=== PATIENT | female | born 1995 | race Hispanic/Latino ===

== ENCOUNTER 2020-05-04 00:17 | Emergency (ER) | payer MEDICAID ==
[2020-05-04 00:54] LABS: BASOPHILS % (AUTO) 0.3 % (0.0-5.0); EOSINOPHILS % (AUTO) 2.5 % (0.0-8.0); HEMATOCRIT 31.7 % (36-48); LYMPHOCYTES % (AUTO) 25.8 % (21.0-51.0); MEAN CORPUSCULAR HEMOGLOBIN 28.5 pg (27.0-33.0); MEAN CORPUSCULAR HGB CONC 33.1 g/dL (32.0-36.0); MEAN CORPUSCULAR VOLUME 85.9 fL (79-99); MONOCYTES % (AUTO) 3.2 % (3.0-13.0); PLATELET COUNT (AUTO) 264 K/uL (130-400); RED BLOOD CELL COUNT(AUTO) 3.69 MIL/uL (4.00-5.50); RED CELL DISTRIBUTION WIDTH 15.4 % (11.0-15.5); WHITE BLOOD COUNT (AUTO) 9.3 K/uL (4.8-10.8)
[2020-05-04 01:01] LABS: APPEARANCE,URINE Clear (CLEAR); BILIRUBIN,URINE Negative (NEGATIVE); COLOR,URINE Dark Yellow (YELLOW); GLUCOSE, URINE (UA) Negative (NEGATIVE); KETONES,URINE Trace mg/dL (NEGATIVE); LEUKOCYTE ESTERASE ,URINE Moderate (NEGATIVE); NITRATE,URINE Negative (NEGATIVE); OCCULT BLOOD,URINE Negative (NEGATIVE); PH,URINE 5.5 (5.0-8.0); PROTEIN,URINE Negative (NEGATIVE)
[2020-05-04 01:03] LABS: POTASSIUM 3.3 mmol/L (3.5-5.1)
[2020-05-04 01:04] LABS: HCG,QUAL RESULT POSITIVE (NEGATIVE)
[2020-05-04 01:08] LABS: ALBUMIN 3.9 g/dL (3.5-5.0); TOTAL PROTEIN, SERUM 8.2 g/dL (6.0-8.3)
[2020-05-04 01:11] LABS: BACTERIA,URINE Few /HPF (None Seen); RBC,URINE 0-1 /HPF (0-1); SQUAMOUS EPITHELIAL CELL,UR Moderate /HPF (0-2)
[2020-05-04] MEDS ORDERED: AMOXICILLIN 500 MG CAPSULE PO ONE (01:35)
== END 2020-05-04 03:31 | disposition home or self-care (01) ==
LOC: EDH 00:17
DX: O23.11 Infections of bladder in pregnancy, first trimester (principal); O20.0 Threatened abortion; Z3A.12 12 weeks gestation of pregnancy
CPT/HCPCS: 36415; 76817; 80053; 81001; 81025; 84702; 85025; 87088

== ENCOUNTER → 2021-10-23 | Emergency (ER) | payer MEDICAID ==
[~2021-10-23] VITALS: Ht 157.5 cm; Wt 80.7 kg
[2021-10-23 16:22] VITALS: BP 117/74
== END ==
LOC: EDH 16:21
DX: R50.9 Fever, unspecified (principal); Z53.21 Procedure and treatment not carried out due to patient leaving prior to being seen by health care provider
CPT/HCPCS: 87635; 87804 ×2; C9803

== ENCOUNTER 2023-05-01 15:47 | Emergency (ER) | payer MEDICAID ==
[~2023-05-01] VITALS: Ht 157.5 cm; Wt 88.5 kg
[2023-05-01] MEDS ORDERED: KETOROLAC 30MG VIAL (30MG/ML) IM SCH (17:30)
[2023-05-01 18:12] VITALS: BP 134/80
[2023-05-01] MEDS ORDERED: IBUP-2070 PO (19:00)
== END 2023-05-01 20:33 | disposition home or self-care (01) ==
LOC: EDH 15:47
DX: R07.0 Pain in throat (principal); T74.21XA Adult sexual abuse, confirmed, initial encounter
CPT/HCPCS: 99285; 70490; 96372; J1885

== ENCOUNTER 2024-04-06 18:48 | Emergency (ER) | payer MEDICAID ==
[~2024-04-06] VITALS: Ht 157.5 cm; Wt 86.2 kg
[~2024-04-06 18:48] MED LIST: FERR324T4 PO; IBUP-2070 PO
[2024-04-06 19:34] LABS: APPEARANCE,URINE CLEAR (CLEAR); BILIRUBIN,URINE NEGATIVE (NEGATIVE); COLOR,URINE YELLOW (YELLOW); GLUCOSE, URINE (UA) NEGATIVE (NEGATIVE); KETONES,URINE NEGATIVE (NEGATIVE); LEUKOCYTE ESTERASE ,URINE NEGATIVE Leu/uL (NEGATIVE); NITRATE,URINE NEGATIVE (NEGATIVE); OCCULT BLOOD,URINE NEGATIVE (NEGATIVE); PH,URINE 5.5 (5.0-8.0); PROTEIN,URINE NEGATIVE (NEGATIVE); UROBILINOGEN,URINE 3 mg/dL (0.2-1.0)
[2024-04-06 19:35] LABS: ADD UA MICROSCOPIC YES; BASOPHILS # (AUTO) 0.02 K/uL (0.00-0.20); BASOPHILS % (AUTO) 0.2 % (0.0-5.0); EOSINOPHILS # (AUTO) 0.06 K/uL (0.00-0.70); EOSINOPHILS % (AUTO) 0.7 % (0.0-8.0); HEMATOCRIT 29.8 % (36-48); IMMATURE GRANULOCYTE ABSOLUTE 0.04 K/uL (0-1); LYMPHOCYTES % (AUTO) 22.9 % (21.0-51.0); MEAN CORPUSCULAR HGB CONC 33.2 g/dL (32.0-36.0); MEAN CORPUSCULAR VOLUME 84.2 fL (79-99); MONOCYTES # (AUTO) 0.3 K/uL (0.1-1.0); MONOCYTES % (AUTO) 3.3 % (3.0-13.0); NEUTROPHILS # (AUTO) 6.2 K/uL (1.8-7.7); NEUTROPHILS % (AUTO) 72.4 % (40.0-77.0); PLATELET COUNT (AUTO) 255 K/uL (130-400); RED BLOOD CELL COUNT(AUTO) 3.54 MIL/uL (4.00-5.50); RED CELL DISTRIBUTION WIDTH 16.5 % (11.0-15.5); WHITE BLOOD COUNT (AUTO) 8.6 K/uL (4.8-10.8)
[2024-04-06 19:37] LABS: BACTERIA,URINE FEW /HPF (None Seen); MUCUS,URINE RARE LPF (None Seen); RBC,URINE 0-1 /HPF (0-1); SQUAMOUS EPITHELIAL CELL,UR RARE /HPF (0-2); WBC,URINE 0-1 /HPF (0-1)
[2024-04-06 19:53] LABS: CREATININE 0.6 mg/dL (0.5-1.0); POTASSIUM 3.5 mmol/L (3.5-5.1)
[2024-04-06 20:51] VITALS: BP 112/67; PULSE 78; RESP 16; O2SAT 98
== END 2024-04-06 20:53 | disposition home or self-care (01) ==
LOC: EDH 18:48
DX: R55 Syncope and collapse (principal); D64.9 Anemia, unspecified; Z79.899 Other long term (current) drug therapy; Z98.890 Other specified postprocedural states
CPT/HCPCS: 36415; 80048; 81001; 84703; 85025